=== PATIENT | male | born 1965 | race Caucasian/White ===

== ENCOUNTER 2020-06-02 11:59 | Emergency (ER) | payer OTHER ==
--- NOTE | 2020-06-02 12:08 | PDOC ---
Rapid Medical Evaluation Medical Evaluation: 06/02/20 12:07 54 yo M c/o L ankle pain and swelling after twisting injury this am. denies head strike or any other complaint. VSS ambulating slowly A/P: L ankle pain L ankle xray
[2020-06-02 12:09] VITALS: BP 161/94; PULSE 86; TEMP 97.9; BMI 32.9
--- NOTE | 2020-06-02 13:01 | PDOC ---
History of Present Illness - General Chief Complaint: Injury Stated Complaint: LEFT FOOT INJURY Time Seen by Provider: 06/02/20 12:21 History Source: Patient Exam Limitations: Clinical Condition - History of Present Illness Initial Comments: 06/02/20 13:04 Patient with no significant past medical history present with complaint of left ankle pain and swelling status post twisting ankle while getting off a boat after going fishing this morning. Denies fall hitting head. Patient has been walking on left ankle reported increased pain to left ankle with ambulation. Denies history of ankle fracture. Denies any other symptoms. Patient took 2 Aleve's prior to arrival in the ED. Occurred: reports: this morning Past History - Medical History Allergies/Adverse Reactions: Allergies Allergy/AdvReac Type Severity Reaction Status Date / Time No Known Allergies Allergy Verified 06/02/20 12:09 Home Medications: Ambulatory Orders Ibuprofen 800 mg PO Q8H PRN #20 tablet 06/02/20 COPD: No HTN: Yes Hypercholesterolemia: Yes - Psycho-Social/Smoking History Smoking History: Current every day smoker Have you smoked in the past 12 months: Yes Information on smoking cessation initiated: Yes - Substance Abuse Hx (Audit-C & DAST Scrn) How often the patient has a drink containing alcohol: Never Score: In Men: 4 or > Positive; In Women: 3 or > Positive: 0 Screen Result (Pos requires Nsg. Audit-10AR): Negative In the last yr the pt used illegal drug/Rx for NonMed reason: No Score: Yes response is considered Positive: 0 Screen Result (Positive result requires Nsg. DAST-10): Negative Review of Systems - Review of Systems Able to Perform ROS?: Yes Is the patient limited [place] proficient: No Constitutional: No: Chills, Fever, Malaise HEENTM: No: Symptoms Reported, See HPI, Eye Pain, Blurred Vision, Tearing, Recent change in vision, Double Vision, Cataracts, Ear Pain, Ocular Prothesis, Ear Discharge, Nose Pain, Nose Congestion, Tinnitus, Nose Bleeding, Hearing Loss, Throat Pain, Throat Swelling, Mouth Pain, Dental Problems, Difficulty Swallowing, Mouth Swelling, Other Cardiac (ROS): No: Symptoms Reported, See HPI, Chest Pain, Edema, Irregular Heart Rate, Lightheadedness, Palpitations, Syncope, Chest Tightness, Other ABD/GI: No: Symptoms Reported Musculoskeletal: Yes: Symptoms Reported, See HPI, Joint Swelling (Left ankle swelling), Muscle Pain (Left ankle pain) Integumentary: Yes: Symptoms Reported, See HPI, Other (Swelling to left ankle) Neurological: No: Numbness, Paresthesia, Tingling, Weakness, Dizziness All Other Systems: Reviewed and Negative *Physical Exam - Vital Signs Last Vital Signs Temp Pulse Resp BP Pulse Ox 97.9 F 86 18 161/94 98 06/02/20 12:06 06/02/20 12:06 06/02/20 12:06 06/02/20 12:06 06/02/20 12:06 - Physical Exam 06/02/20 13:08 GENERAL: Well developed, well nourished. Awake and alert in mild acute distress. PULMONARY: No evidence of respiratory distress. MUSCULOSKELETAL : Moderate tenderness to lateral aspect of left ankle with diffuse swelling to left ankle and foot. No visible deformity. SKIN: Warm and dry. Normal capillary refill. Moderate swelling over lateral malleoli of left ankle and proximal foot NEUROLOGICAL: Alert, awake, appropriate. No motor deficits in the lower extremities. Gait is normal without ataxia. PSYCHIATRIC: Cooperative. Good eye contact. Appropriate mood and affect. General Appearance: Yes: Nourished, Appropriately Dressed, Mild Distress Procedures - Splinting Splint Location: Left: Ankle (bi-malleolus splint) Pre-Proc Neuro Vasc Exam: normal Hand-Made Type: orthoglass Splint Type: Yes: Sugar Tong, Long Leg Post-Proc Neuro Vasc Exam: normal Gaurav Bandage: yes, 4" Sling: No Complications: No Post splint xray: No Good repositioning: Yes Medical Decision Making - Medical Decision Making 06/02/20 13:05 Patient with no significant past medical history present with complaint of left ankle pain and swelling status post twisting ankle while getting off a boat after going fishing this morning. Denies fall hitting head. Patient has been walking on left ankle reported increased pain to left ankle with ambulation. Denies history of ankle fracture. Denies any other symptoms. Patient took 2 Aleve's prior to arrival in the ED. Exam significant for moderate tenderness with moderate swelling to left ankle with increased tenderness to lateral malleoli of left ankle. No visible deformity or bruising. X-ray of left ankle shows nondisplaced distal fibular fracture. Patient already took Aleve. Patient placed bi-malleolus ankle splint. Patient is placed in a postop hard soled shoe and provided crutches to keep weight of left ankle. Patient stable for discharge with advised to take Motrin as needed for pain and keep left leg elevated onto orthopedics follow-up. Strict follow-up instructions discussed with patient and patient voiced understanding will follow-up with orthopedics Discharge - Discharge Information Problems reviewed: Yes Clinical Impression/Diagnosis: Fibula fracture Qualifiers: Encounter type: initial encounter Fibula location: distal Fracture type: closed Fracture morphology: unspecified fracture morphology Laterality: left Qualified Code(s): S82.832A - Other fracture of upper and lower end of left fibula, initial encounter for closed fracture Condition: Stable Disposition: HOME - Admission No - Additional Discharge Information Prescriptions: Ibuprofen 800 mg PO Q8H PRN #20 tablet PRN Reason: pain - Follow up/Referral Referrals: Michael Ch DO [Staff Physician] - - Patient Discharge Instructions Patient Printed Discharge Instructions: DI for Ankle Fracture Additional Instructions: X-ray of the ankle shows fracture of the fibular bone which you wear splint. Keep splint on until the pain is follow-up. Use provided crutches to keep weight off left ankle and keep leg elevated and take Motrin as needed for pain. Its very important to follow-up with orthopedics as soon as possible - Post Discharge Activity Work/Back to School Note: Back to Work
== END 2020-06-02 13:13 | disposition home or self-care (01) ==
LOC: JERFT 11:59
DX: S82.832A Other fracture of upper and lower end of left fibula, initial encounter for closed fracture (principal)
CPT/HCPCS: 73610-TC-LT-FY; 99283-25